=== PATIENT | female | born 1995 | race African-American/Black ===

== ENCOUNTER 2017-05-02 00:36 | Observation (INO) | payer MEDICAID ==
[~2017-05-02] VITALS: Ht 170.2 cm; Wt 131.5 kg
[2017-05-02] MEDS ORDERED: PREN-88 PO (02:52)
== END 2017-05-02 03:30 | disposition home or self-care (01) ==
LOC: L&D 00:36
PROVIDERS: ADMIT Obstetrics & Gynecology; ATTEND Obstetrics & Gynecology
DX: O26.899 Other specified pregnancy related conditions, unspecified trimester (principal); R10.9 Unspecified abdominal pain; Z3A.00 Weeks of gestation of pregnancy not specified
CPT/HCPCS: 99281; G0378

== ENCOUNTER 2018-03-21 17:42 | Observation (INO) | payer MEDICAID ==
[~2018-03-21] VITALS: Ht 170.2 cm; Wt 138.3 kg
[~2018-03-21 17:42] MED LIST: PREN-88 PO
== END 2018-03-21 19:43 | disposition home or self-care (01) ==
LOC: L&D 17:42
PROVIDERS: ADMIT Obstetrics & Gynecology; ATTEND Obstetrics & Gynecology
DX: O26.892 Other specified pregnancy related conditions, second trimester (principal); R10.9 Unspecified abdominal pain; Z3A.26 26 weeks gestation of pregnancy
CPT/HCPCS: 76815; 76817; 99281; G0378

== ENCOUNTER 2019-09-27 22:10 | Inpatient (IN) | payer MEDICAID ==
[~2019-09-27] VITALS: Ht 160 cm; Wt 142.0 kg
[2019-09-27] MEDS ORDERED: DEXT 5%/LR + PITOCIN 20UNITS/L 1,000 ML IV SCH (22:57)
[2019-09-27] MEDS ORDERED: NALOXONE HCL 0.4 MG/ML 1ML VIAL IM PRN (23:00)
[2019-09-27] MEDS ORDERED: CARBOPROST TROMETHAMINE 250 MCG/ML AMPUL IM PRN (23:00)
[2019-09-27] MEDS ORDERED: METHYLERGONOVINE MALEATE 0.2 MG/ML IM PRN (23:00)
[2019-09-27] MEDS ORDERED: CITRIC ACID/SODIUM CITRATE SOLN 30ML UDC PO NR (23:15)
[2019-09-27] MEDS: LACTATED RINGERS 1,000 ML IV SCH (23:27)
[2019-09-27] MEDS ORDERED: METOCLOPRAMIDE HCL 10MG/2ML VIAL ONE (23:31)
[2019-09-27] MEDS ORDERED: CEFAZOLIN SODIUM 1000MG/VIAL ONE (23:31)
[2019-09-27] MEDS ORDERED: ONDANSETRON HCL 4MG/2ML INJ ONE (23:31)
[2019-09-27] MEDS ORDERED: EPHEDRINE SULFATE 50MG/ML VIAL ONE (23:31)
[2019-09-27] MEDS ORDERED: GLYCOPYRROLATE 0.2 MG/ML 2ML VIAL ONE (23:31)
[2019-09-27] MEDS ORDERED: FENTANYL CITRATE/PF 50MCG/ML 2ML VIAL ONE (23:31)
[2019-09-27] MEDS ORDERED: PHENYLEPHRINE HCL 10 MG/ML 1ML (IV VIAL) IV ONE (23:31)
[2019-09-27] MEDS ORDERED: OXYTOCIN 10 UNITS/ML 1ML ONE (23:31)
[2019-09-27] MEDS ORDERED: MORPHINE SULFATE/PF 1MG/ML 10ML AMP ONE (23:31)
[2019-09-27 23:57] LABS: CLARITY URINE CLEAR (CLEAR); COLOR URINE YELLOW (YELLOW); KETONES URINE TRACE (NEGATIVE); LEUKOCYTE ESTERASE URINE 1+ (NEGATIVE); NITRITE URINE NEGATIVE (NEGATIVE); OCCULT BLOOD URINE NEGATIVE (NEGATIVE); PROTEIN URINE NEGATIVE (NEGATIVE); SPECIFIC GRAVITY URINE 1.021 (1.005-1.030)
[2019-09-27 23:58] LABS: BASOPHILS % 0.3 % (0.0-2.0); EOSINOPHILS % 0.5 % (0.0-5.0); HEMATOCRIT. 32.1 % (36.0-48.0); LYMPHOCYTES % 31.2 % (20.0-50.0); MEAN CORPUSCULAR HEMOGLOBIN 29.1 pg (28.0-32.0); MEAN CORPUSCULAR VOLUME 85.1 fL (81.0-99.0); MEAN PLATELET VOLUME 8.7 fl (7.4-10.4); MONOCYTES % 7.8 % (2.0-8.0); NEUTROPHILS % 60.2 % (40.0-76.0); PLATELET 198 x1000/uL (130-400); RED BLOOD CELL COUNT 3.77 mill/uL (4.2-5.4); RED CELL DISTRIBUTION WIDTH 15.6 % (11.6-14.6)
[2019-09-28] VITALS (7 sets, daily range): BP systolic 93–115; BP diastolic 41–55
[2019-09-28 00:02] LABS: PARTIAL THROMBOPLASTIN TIME 27.3 sec (23.4-31.0); PROTHROMBIN TIME 10.3 sec (9.6-11.0)
[2019-09-28 00:13] LABS: *AMPHETAMINES SCREEN URINE NEGATIVE (NEGATIVE); *BARBITURATES SCREEN URINE NEGATIVE (NEGATIVE); *BENZODIAZEPINES SCREEN URINE NEGATIVE (NEGATIVE); *COCAINE SCREEN URINE NEGATIVE (NEGATIVE)
[2019-09-28 00:14] LABS: CANNABINOID URINE SCREEN NEGATIVE (NEGATIVE); METHADONE URINE SCREEN NEGATIVE (NEGATIVE); OPIATES URINE SCREEN NEGATIVE (NEGATIVE); PHENCYCLIDINE URINE SCREEN NEGATIVE (NEGATIVE)
[2019-09-28 00:34] LABS: HEPATITIS B SURFACE ANTIGEN NEGATIVE
[2019-09-28] MEDS ORDERED: METOCLOPRAMIDE HCL 10MG/2ML VIAL ONE (00:38)
[2019-09-28] MEDS ORDERED: MIDAZOLAM HCL 2 MG/2 ML VIAL ONE (01:07)
[2019-09-28] MEDS ORDERED: KETOROLAC 60MG/2ML VIAL IM ONE ×2 (01:11→01:12)
[2019-09-28] MEDS ORDERED: DIPHENHYDRAMINE 50MG/ML VIAL ONE (01:12)
[2019-09-28] MEDS ORDERED: DEXT 5%/LR + PITOCIN 20UNITS/L 1,000 ML IV SCH (01:47)
[2019-09-28] MEDS ORDERED: BUTORPHANOL TARTRATE 2 MG/ML VIAL IV PRN (02:00)
[2019-09-28] MEDS ORDERED: BISACODYL 10MG SUPP PR PRN (02:00)
[2019-09-28] MEDS ORDERED: NALOXONE HCL 0.4 MG/ML 1ML VIAL IV PRN (02:00)
[2019-09-28] MEDS ORDERED: RHO(D) IMMUNE GLOBULIN 300 MCG/SYR IM PRN (02:00)
[2019-09-28] MEDS ORDERED: HYDROMORPHONE HCL/PF 2MG/ML CPJ IM PRN (02:00)
[2019-09-28] MEDS ORDERED: IBUPROFEN 400MG TABLET PO PRN (02:00)
[2019-09-28] MEDS ORDERED: DIPHENHYDRAMINE 50MG/ML VIAL IV PRN (02:00)
[2019-09-28] MEDS: KETOROLAC 30MG/ML VIAL IV SCH ×2 (08:20→16:05)
[2019-09-28] MEDS: LACTATED RINGERS 1,000 ML IV SCH (21:19)
[2019-09-29] MEDS: IBUPROFEN 800MG TABLET PO PRN ×3 (01:58→22:24)
[2019-09-29 04:00] VITALS: BP 99/58
[2019-09-29 06:20] LABS: BASOPHILS % 0.2 % (0.0-2.0); EOSINOPHILS % 1.5 % (0.0-5.0); HEMATOCRIT. 28.8 % (36.0-48.0); HEMOGLOBIN. 9.9 g/dL (12.0-16.0); LYMPHOCYTES % 24.1 % (20.0-50.0); MEAN CORPUSCULAR HEMOGLOBIN 29.5 pg (28.0-32.0); MEAN PLATELET VOLUME 9.3 fl (7.4-10.4); MONOCYTES % 9.1 % (2.0-8.0); NEUTROPHILS % 65.1 % (40.0-76.0); PLATELET 173 x1000/uL (130-400); RED BLOOD CELL COUNT 3.35 mill/uL (4.2-5.4); RED CELL DISTRIBUTION WIDTH 15.9 % (11.6-14.6)
[2019-09-29] MEDS: ACETAMINOPHEN WITH CODEINE 300/30MG TABLET PO PRN ×3 (06:44→19:05)
[2019-09-29 07:15] VITALS: BP 99/52
[2019-09-29 14:00] VITALS: BP 105/54
[2019-09-29 19:30] VITALS: BP 130/64
[2019-09-30 04:00] VITALS: BP 99/47
[2019-09-30 07:15] VITALS: BP 101/52
[2019-09-30 14:00] VITALS: BP 100/52
[2019-09-30] MEDS: IBUPROFEN 800MG TABLET PO PRN (14:00)
[2019-09-30 20:00] VITALS: BP 112/56
[2019-09-30] MEDS: ACETAMINOPHEN WITH CODEINE 300/30MG TABLET PO PRN ×2 (20:45)
[2019-09-30 23:45] VITALS: BP 113/49
[2019-10-01] MEDS ORDERED: IBUP-2030 MT (02:56)
[2019-10-01 04:10] VITALS: BP 105/49
[2019-10-01 06:05] VITALS: BP 118/47
[2019-10-01] MEDS: IBUPROFEN 800MG TABLET PO PRN (06:05)
== END 2019-10-01 15:00 | disposition home or self-care (01) | DRG 560 ==
LOC: OBSVTOIN 22:10 → 8 EST LDRP 22:10 → 8EST 09-28 04:45
PROVIDERS: ADMIT Obstetrics & Gynecology; ATTEND Obstetrics & Gynecology
PROC: 10D07Z6 Extraction of Products of Conception, Vacuum, Via Natural or Artificial Opening (ICD-10-PCS; principal; 2019-09-28)
DX: O34.219 Maternal care for unspecified type scar from previous cesarean delivery (principal); D62 Acute posthemorrhagic anemia; O69.1XX0 Labor and delivery complicated by cord around neck, with compression, not applicable or unspecified; O90.81 Anemia of the puerperium; E66.9 Obesity, unspecified; Z37.0 Single live birth; Z3A.38 38 weeks gestation of pregnancy; Z82.49 Family history of ischemic heart disease and other diseases of the circulatory system; Z83.3 Family history of diabetes mellitus
CPT/HCPCS: 36415; 80305; 81003; 86592; 86762; 86850; 86900; 86920; 87340; 88307; 93970; 99281; G0378; J0595; J0690; J1200; J1885; J2250; J2274; J2370; J2405; J2590; J2765; J3010; J3490; J7120